=== PATIENT | female | born 1955 | race Caucasian/White ===

== ENCOUNTER → 2016-08-02 | Outpatient (CLI) | payer BC | LOC: RAD 14:12 | PROVIDERS: ATTEND Obstetrics & Gynecology Obstetrics | DX: Z12.31 Encounter for screening mammogram for malignant neoplasm of breast (principal) ==

== ENCOUNTER → 2016-09-04 | Outpatient (CLI) | payer BC | LOC: RAD 12:18 | PROVIDERS: ATTEND Pain Medicine Pain Medicine | DX: M54.5 Low back pain (principal); M51.36 Other intervertebral disc degeneration, lumbar region | CPT/HCPCS: 72148 ==

== ENCOUNTER → 2016-09-27 | Outpatient (CLI) | payer BC ==
[~2016-09-27] MED LIST: AMLO10TA82 PO; ASCO500C6 PO; ASPI-158 PO; ASPI-860 PO; BUTA1CAP3 PO; CALC250T2 PO; CALC600T12 PO; CYAN50TA PO; CYCL5TAB PO; ESTR1TAB24 PO; FEXO1TAB40 PO; GFN600TCR PO; GLUC-174 PO; GLUC1TAB20 PO; GUAI-836 PO; HYDR-3811 PO; HYOS0.1216 PO; LORA5TAB9 PO; LOSA100T8 PO; MNTL10T PO; MULT-35 PO; NF-FLON16G NS; NITR1OIN TD; OMEP20CA12 PO; OMG1KC PO; OSPE60TA2 PO; POLY17PO2 PO; PROM25TA14 PO; TOPI200T25 PO; TSSN473B PO; VITA-189 PO
--- NOTE | 2016-09-27 11:14 | Diagnostic Imaging Report ---
CLINICAL INDICATION: Possible left renal cyst seen on MRI. EXAM: Ultrasound of both kidneys. COMPARISON: MRI of the lumbar spine without IV contrast dated 09/04/2016. FINDINGS: There is no left renal cyst seen on this exam. Slightly small left kidney compared to the right kidney. Otherwise, both kidneys are normal in size, shape, echogenicity and cortical thickness without hydronephrosis, stones, or focal lesions with the right and left kidneys measuring 11.8 cm and 10.0 cm in their craniocaudal dimensions, respectively. IMPRESSION: 1: There is no left renal cyst seen on this exam. 2: Slightly small left kidney compared to the right kidney. Otherwise, unremarkable bilateral renal ultrasound. Dictated by: Dictated on workstation # [id number]
== END ==
LOC: RAD 09:22
PROVIDERS: ATTEND Family Medicine
DX: N28.1 Cyst of kidney, acquired (principal)
CPT/HCPCS: 76770